=== PATIENT | female | born 1935 | race Caucasian/White ===

== ENCOUNTER 2018-05-14 08:15 | Emergency (ER) | payer MEDICARE, BC ==
[2018-05-14] MEDS ORDERED: Proparacaine 0.5% Ophth Soln 15 ML Bottle EYELF ONE (08:39)
--- NOTE | 2018-05-14 08:50 | EDM.PDOC ---
ED HPI GENERAL MEDICAL PROBLEM - General Chief Complaint: Eye Problems Stated Complaint: EYES HURTS Time Seen by Provider: 05/14/18 08:23 - History of Present Illness INITIAL COMMENTS - FREE TEXT/NARRATIVE: HISTORY AND PHYSICAL: History of present illness: Patient 82 year old female presents with concern of redness and irritation in her left eye with crusty discharge over the last 24 hours she denies eye pain visual changes or other concern is no family history of personal history of glaucoma or other eye pathology. Review of systems: As per history of present illness and below otherwise all systems reviewed and negative. Past medical history: As per history of present illness and as reviewed below otherwise noncontributory. Surgical history: As per history of present illness and as reviewed below otherwise noncontributory. Social history: No reported history of drug or alcohol abuse. Family history: As per history of present illness and as reviewed below otherwise noncontributory. Physical exam: HEENT: Atraumatic, normocephalic, pupils reactive, negative for conjunctival pallor or scleral icterus, mucous membranes moist, throat clear, neck supple, nontender, trachea midline. Injected left conjunctiva corneal staining remarkable for small approximately 1 mm central abrasion anterior chambers clear funduscopic exam is normal Lungs: Clear to auscultation, breath sounds equal bilaterally, chest nontender. Heart: S1S2, regular, negative for clicks, rubs, or JVD. Abdomen: Soft, nondistended, nontender. Negative for masses or hepatosplenomegaly. Negative for costovertebral tenderness. Pelvis: Stable nontender. Genitourinary: Deferred. Rectal: Deferred. Extremities: Atraumatic, negative for cords or calf pain. Neurovascular unremarkable. Neuro: Awake, alert, oriented. Cranial nerves II through XII unremarkable. Cerebellum unremarkable. Motor and sensory unremarkable throughout. Exam nonfocal. Diagnostics: Corneal staining Therapeutics: Proparacaine and irrigation Impression: #1 left corneal abrasion with conjunctivitis Definitive disposition and diagnosis as appropriate pending reevaluation and review of above. Left Eye Pain Score (Numeric/FACES): 6 - Related Data Allergies Allergy/AdvReac Type Severity Reaction Status Date / Time No Known Allergies Allergy Verified 05/14/18 08:41 Home Meds: Home Meds Levothyroxine Sodium [Synthroid] 05/14/18 [History] Simvastatin 05/14/18 [History] ED ROS GENERAL - Review of Systems Review Of Systems: ROS reveals no pertinent complaints other than HPI. ED EXAM GENERAL W FULL EYE - Physical Exam Exam: See Below (dictation) Course - Vital Signs Last Recorded V/S: Last Vital Signs Temp 36.4 C 05/14/18 08:39 Pulse 69 05/14/18 08:39 Resp 18 05/14/18 08:39 BP 119/85 05/14/18 08:39 Pulse Ox 96 05/14/18 08:39 - Orders/Labs/Meds Meds: Medications Discontinued Medications Generic Name Dose Route Start Last Admin Trade Name Freq PRN Reason Stop Dose Admin Proparacaine HCl 1 ml 05/14/18 08:39 Proparacaine 0.5% Ophth Soln EYELF 05/14/18 08:40 ONETIME ONE Departure - Departure Time of Disposition: 08:49 Disposition: Home, Self-Care 01 Condition: Good Clinical Impression: Corneal abrasion, Conjunctivitis - Discharge Information Additional Instructions: The following information is given to patients seen in the emergency department who are being discharged to home. This information is to outline your options for follow-up care. We provide all patients seen in our emergency department with a follow-up referral. The need for follow-up, as well as the timing and circumstances, are variable depending upon the specifics of your emergency department visit. If you don't have a primary care physician on staff, we will provide you with a referral. We always advise you to contact your personal physician following an emergency department visit to inform them of the circumstance of the visit and for follow-up with them and/or the need for any referrals to a consulting specialist. The emergency department will also refer you to a specialist when appropriate. This referral assures that you have the opportunity for followup care with a specialist. All of these measure are taken in an effort to provide you with optimal care, which includes your followup. Under all circumstances we always encourage you to contact your private physician who remains a resource for coordinating your care. When calling for followup care, please make the office aware that this follow-up is from your recent emergency room visit. If for any reason you are refused follow-up, please contact the [facility] emergency department at and asked to speak to the emergency department charge nurse. Tobramycin as prescribed no contact lenses until follow-up with ophthalmology return as needed as discussed
== END 2018-05-14 09:05 | disposition home or self-care (01) ==
LOC: MW.ED 08:15
DX: S05.02XA Injury of conjunctiva and corneal abrasion without foreign body, left eye, initial encounter (principal); H10.9 Unspecified conjunctivitis; X58.XXXA Exposure to other specified factors, initial encounter
CPT/HCPCS: 99282